=== PATIENT | male | born 1995 | race Caucasian/White ===

== ENCOUNTER 2023-06-16 09:30 | Day surgery (SDC) | payer OTHER ==
[~2023-06-16] VITALS: Ht 170.2 cm; Wt 86.0 kg
[~2023-06-16 09:30] MED LIST: OMEPRAZOLE20 MG PO; OSTERA TABLET1 EACH PO; VENTOLIN HFA18 GM INH; WELLBUTRIN XL300 MG PO
[2023-06-16 09:46] VITALS: BP 135/79
[2023-06-16 11:10] VITALS: BP 124/87
--- NOTE | 2023-06-16 11:33 | NUR ---
06/16/23 1133 Dora Servin 1035 PT ARRIVED IN PACU SLEEPY. 1050 DR AT BEDSIDE TALKING WITH PT. ALL QUESTIONS ANSWERED. 1100 SITTING UP IN BED SIPPING ON JUICE. 1117 DC INSTRUCTIONS GIVEN. LEFT VIA W/C.
--- NOTE | 2023-06-16 21:59 | OR ---
[facility] [address] [place], [place] [address] Signed DATE OF OPERATION: 06/16/2023 SURGEON: Esteban Ham MD PREOPERATIVE DIAGNOSIS: Clinical gastroesophageal reflux. POSTOPERATIVE DIAGNOSES: Hiatal hernia with chronic distal esophagitis without Machuca's epithelium. PROCEDURE: Esophagogastroduodenoscopy with biopsy. ANESTHESIA: Intravenous sedation; fentanyl 100 mcg and Versed 4 mg. INDICATION: This 27-year-old white man is patient of Mery Iqbal and for the past nearly two years, he has had clinical reflux symptoms. He has managed with PPI medication with good beneficial effect. He has no associated dysphagia and no family history of esophageal cancer. No unintentional weight loss and no hematemesis. He does have associated "asthma" and possibly sleep apnea syndrome as well. He is admitted at this time to undergo upper endoscopy to better characterize the findings of clinical reflux and to assess for Machuca's epithelium and so on. He understands the risk of bleeding, infection, perforation, and so forth and wished to proceed. FINDINGS: Mild chronic distal esophagitis was noted and a hiatal hernia was seen. Stomach and duodenum were otherwise normal. CLOtest was negative. Retroflexed view was difficult to visualize the hernia well as he had profound loss of insufflated air making visualization difficult, though it was clearly present on what views were obtained. DESCRIPTION OF PROCEDURE: The patient was brought to the endoscopy suite and given topical lidocaine hypopharyngeal anesthesia and placed in lateral decubitus position. He was given intravenous sedation to the point of slurred speech and nystagmus with full cardiopulmonary monitoring. A bite block was placed. An Olympus video upper endoscope was passed in the hypopharynx. The vocal cords were only transiently visualized. The scope was advanced to the esophagus. The esophagus was Electronically Signed By: ESTEBAN HAM MD 06/16/23 2159 PATIENT NAME: ROD CARDONA OPERATIVE REPORT DATE OF : [birth year] REPORT #: [id number] PHYSICIAN: ESTEBAN HAM MD PCP: MERY IQBAL PA-C REPORT IS CONFIDENTIAL AND NOT TO BE RELEASED WITHOUT AUTHORIZATION [facility] [address] [place], [place] [address] Signed then examined fully. The distal portion showed mild chronic esophagitis, but no Machuca's epithelium. Scope was passed to the stomach which was insufflated with air. Rugal folds were normal. The antrum was reasonably normal as was the pylorus. The scope was passed through into the duodenum, which was normal. Biopsies were taken of the duodenum to assess for celiac disease. The scope was withdrawn and biopsies were then taken of the antrum for both JESSICA and pathologic testing. Multiple attempts at conventional retroflexed view were undertaken poorly visualizing the hiatal hernia itself as profound loss of insufflated air was noted through the patent GE junction. The scope was ultimately straightened and withdrawn. A biopsy was then taken of the distal esophagus. There was no evidence of Machuca's epithelium. Further withdrawal allowed for biopsy of the midesophagus also. The scope was removed and the patient was taken to the recovery room in good condition. CONCLUDING DIAGNOSES: Clinical gastroesophageal reflux symptoms with chronic distal esophagitis and hiatal hernia. PLAN: We would recommend continued use of PPI medication for now. We will see him back in the office in 4 to 6 weeks. Would consider him a good candidate probably for anti-reflux operation in aggregate. We will review those possibilities when I see him in the office. MD GABRIELA Rao/SHONNA /[id number] cc: QUE Murphy Copies: ~ Electronically Signed By: ESTEBAN HAM MD 06/16/23 2159 PATIENT NAME: ROD CARDONA OPERATIVE REPORT DATE OF : [birth year] REPORT #: [id number] PHYSICIAN: ESTEBAN HAM MD PCP: MERY IQBAL PA-C REPORT IS CONFIDENTIAL AND NOT TO BE RELEASED WITHOUT AUTHORIZATION
--- NOTE | 2023-06-18 16:39 | PATH ---
[facility] [facility] [address] [facility] [place], [place] [address] Signed THIS IS AN ADDENDUM REPORT SPECIMEN(S): A DUODENAL BIOPSY SPECIMEN(S): B ANTRUM/ANTRAL BIOPSY SPECIMEN(S): C DISTAL ESOPHAGEAL BIOPSY SPECIMEN(S): D MID ESOPHAGEAL BIOPSY SPECIMEN SOURCE: A. DUODENAL BIOPSY B. ANTRUM/ANTRAL BIOPSY C. DISTAL ESOPHAGEAL BIOPSY D. MID ESOPHAGEAL BIOPSY CLINICAL HISTORY: History of heartburn. DX: Hiatal hernia, distal esophagitis FINAL PATHOLOGIC DIAGNOSIS: A. Duodenal biopsy: - Benign duodenal mucosa, negative for specific diagnostic abnormality. B. Antrum/antral biopsy: - Benign gastric type mucosa with focal slight chronic inflammation. - Negative for evidence of Helicobacter organisms on routine HE stained sections. C. Distal esophageal biopsy: - Benign esophageal mucosa, negative for increased epithelial eosinophils. D. Mid esophageal biopsy: - Benign esophageal mucosa, negative for increased epithelial eosinophils. JVR:cml MICROSCOPIC EXAMINATION: Histologic sections of all submitted blocks are examined by light microscopy. These findings, together with the gross examination, support the pathologic diagnosis. GROSS DESCRIPTION: A. The specimen, labeled and designated "Hill, L, duodenum (NOS) biopsy," is received in formalin and consists of 4 johnston soft tissue fragments measuring 0.2 x 0.4 cm in greatest dimension, all specimens have been submitted entirely in (A1). B. The specimen, labeled and designated "Hill, L, stomach, antrum/pylorus biopsy," is received in formalin and consists of 2 johnston soft tissue fragments PATIENT NAME: ROD GUTIERREZ PATHOLOGY DATE OF : [birth year] REPORT #: [id number] PHYSICIAN: KRISTELManaged Methods PATHOLOGY PCP: MERY FRANCISCO PA-C REPORT IS CONFIDENTIAL AND NOT TO BE RELEASED WITHOUT AUTHORIZATION [facility] [address] [place], [place] [address] Signed measuring 0.3 x 0.6 cm in greatest dimension, specimens have been submitted entirely in (B1). C. The specimen, labeled and designated "Ted Gutierrez, distal esophagus (NOS) biopsy," is received in formalin and consists of multiple white soft tissue fragments measuring 0.3 x 0.4 cm in greatest dimension, all specimens have been submitted entirely in (C1). D. The specimen, labeled and designated "Matt, Ted, mid esophagus (NOS) biopsy," is received in formalin and consists of 2 white soft tissue fragments measuring 0.3 x 0.4 cm in greatest dimension, all specimens have been submitted entirely in (D1). MMA (under the direct supervision of a pathologist) The Gross Description was prepared using a voice recognition system. The report was reviewed for accuracy; however, sound-alike word errors, addition and/or deletions may occur. If there is any question about this report, please contact Client Services. PERFORMING LABORATORY: Technical component was performed by [email or web address], [address] [place] [id number] (CLIA# [id number]). Professional interpretation was performed by [facility], [address] [place] [id number] (CLIA#: [id number]). ADDITIONAL NOTES: Immunohistochemical and/or in situ hybridization studies were performed on this case with the appropriate positive controls that react as expected. This test was developed and its performance characteristics determined by [facility]. It has not been cleared or approved by the U.S. Food and Drug Administration. The FDA has determined that such clearance or approval is not necessary. This test is used for clinical purposes. It should not be regarded as investigational or for research. [facility] is certified under the Clinical Laboratory Improvement Amendments of 1988 (CLIA) as qualified to perform high complexity clinical laboratory testing. This assay has not been validated for specimens that have been decalcified. PERFORMING LABORATORY: Professional interpretation was performed by [facility], [address] [place] [address], [place] [address] (CLIA#: [id number]). REASON FOR ADDENDUM: PATIENT NAME: ROD GUTIERREZ PATHOLOGY DATE OF : [birth year] REPORT #: [id number] PHYSICIAN: BILL GARCIA PCP: MERY FRANCISCO PA-C REPORT IS CONFIDENTIAL AND NOT TO BE RELEASED WITHOUT AUTHORIZATION [address] [address] Signed The purpose of the addendum is to report the results of Helicobacter pylori immunostain, on the antrum/antral biopsy (specimen B). ADDENDUM PATHOLOGIC COMMENT: B. A Helicobacter pylori immunostain is performed with appropriate positive and negative controls on block B1 and is negative for organisms. JVR:brenda Diagnostician: Frank Delvalle MD Pathologist Electronically Signed 06/18/2023 Copies: ~ PATIENT NAME: ROD GUTIERREZ PATHOLOGY DATE OF : [birth year] REPORT #: [id number] PHYSICIAN: BILL PATHOLOGY PCP: MERY FRANCISCO PA-C REPORT IS CONFIDENTIAL AND NOT TO BE RELEASED WITHOUT AUTHORIZATION
== END 2023-06-16 11:17 | disposition home or self-care (01) ==
LOC: OPS 09:30 → DS 09:34 → OPS 10:30 → DS 14:00 → OPS 14:00
PROVIDERS: ATTEND Surgery
PROC: 0DB68ZX Excision of Stomach, Via Natural or Artificial Opening Endoscopic, Diagnostic (ICD-10-PCS; 2023-06-16)
PROC: 0DB98ZX Excision of Duodenum, Via Natural or Artificial Opening Endoscopic, Diagnostic (ICD-10-PCS; principal; 2023-06-16 10:30)
DX: K21.00 Gastro-esophageal reflux disease with esophagitis, without bleeding (principal); K44.9 Diaphragmatic hernia without obstruction or gangrene; J45.909 Unspecified asthma, uncomplicated; Z90.09 Acquired absence of other part of head and neck
CPT/HCPCS: G0500; J2250; J3010; J7121